=== PATIENT | male | born 1960 | race Caucasian/White ===

== ENCOUNTER 2018-10-28 09:27 | Observation (INO) | payer BC ==
--- OUTSIDE RECORDS SUMMARY | 2018-10-28 10:11 | XMS REPORT ---
:1960 Author Organization [facility] Address [address] [place] [address] Dr. Del Toro [address] [place] [id number] Care Team Providers Name Role Phone Unavailable Unavailable Unavailable Problems This patient has no known problems. Allergies, Adverse Reactions, Alerts This patient has no known allergies or adverse reactions. Medications This patient has no known medications.
--- OUTSIDE RECORDS SUMMARY | 2018-10-28 10:11 | XMS REPORT | Summary of Care ---
:1960 Author Name Anyn Ji M.A. Address [facility] Unavailable , Care Team Providers Name Role Phone HUMBERTO Nolasco, LOUIS Du Unavailable LOUIS PAUL MD Unavailable Unavailable HAZEL MCFARLANE, REGI PETERSON Unavailable Unavailable Unavailable Unavailable Unavailable Functional Status Name Dates Details Functional status health issues are not documented Status: Name Dates Details Cognitive status health issues are not documented Status: Problems Name Dates Details Excessive cerumen in right ear canal (380.4, H61.21) Status: Active Acute otitis externa (380.10, H60.509) Status: Active Chronic otitis externa (380.23, H60.60) Status: Active Medications Name Dates Details Zocor TABS Refills: 0 Active Prinivil TABS Refills: 0 Active Paxil TABS Refills: 0 Active PriLOSEC OTC TBEC Refills: 0 Active Ambien TABS Refills: 0 Active Latanoprost 0.005 % Ophthalmic Solution Refills: 0 Active traMADol HCl TABS Refills: 0 Active Fluocinolone Acetonide 0.01 % Otic Oil 3-4 drops to affected ear daily. Quantity: 1 Refills: 6 LOUIS PAUL M.D. Start : 28-Feb-2017 Active 20 ML Bottle Fluocinolone Acetonide 0.01 % Otic Oil 3 to 4 drops to both ears daily. Quantity: 1 Refills: 10 LOUIS PAUL M.D. Start : 13-Sep-2018 Active 20 ML Bottle Allergies and Adverse Reactions Name Dates Details No Known Drug Allergies (Allergy) Status: Active Past Medical History Name Dates Details History of diabetes mellitus (V12.29, Z86.39) Status: Resolved History of glaucoma (V12.49, Z86.69) Status: Resolved History of hypertension (V12.59, Z86.79) Status: Resolved Procedures Procedure Dates Details Procedures not documented Immunization Name Dates Details Immunizations not documented Family History Name Dates Details Family history of malignant neoplasm (V16.9, Z80.9) Comments: Family History Status: Active Family history of cardiac disorder (V17.49, Z82.49) Comments: Family History Status: Active Social History Name Dates Details - Status: Name Dates Details Never smoker Vital Signs Date Test Result Details [id number] BP Systolic 127 mm[Hg] Status: BP Diastolic 83 mm[Hg] Status: Height 68 in Status: Weight 299 lb Status: Body Mass Index Calculated 45.46 kg/m2 Status: Body Surface Area Calculated 2.42 m2 Status: Heart Rate 57 /min Status: [id number] BP Systolic 114 mm[Hg] Status: BP Diastolic 79 mm[Hg] Status: Height 68 in Status: Weight 298 lb Status: Body Mass Index Calculated 45.31 kg/m2 Status: Body Surface Area Calculated 2.42 m2 Status: Heart Rate 60 /min Status: [id number]:29 BP Systolic 115 mm[Hg] Status: BP Diastolic 79 mm[Hg] Status: Height 68 in Status: Weight 298.125 lb Status: Body Mass Index Calculated 45.33 kg/m2 Status: Body Surface Area Calculated 2.42 m2 Status: Heart Rate 65 /min Status: Results Date Description Value Details Results not documented Plan of Care Name Dates Details Planned Observations Planned Goals not documented Planned Encounters Appointment; LOUIS PAUL M.D. On: 14-Oct-2018 15:00 Interventions Provided Medication ChangesFluocinolone Acetonide 0.01 % Otic Oil - StartPlan1. Will need to stop the Ciprodex. Will begin Dermotic. FU in 1 month. Instructions Name Dates Details Instructions not documented Encounters Appointment; LOUIS PAUL M.D. On: 27-Feb-2017 14:00 Encounter Diagnosis: Problem not documented Appointment; LOUIS PAUL M.D. On: 30-Aug-2018 8:15 Encounter Diagnosis: Problem not documented Appointment; LOUIS PAUL M.D. On: 06-Sep-2018 9:15 Encounter Diagnosis: Problem not documented Appointment; LOUIS PAUL M.D. On: 13-Sep-2018 14:45 Encounter Diagnosis: Problem not documented
[2018-10-28 10:56] VITALS: BMI 43.1
[2018-10-28 11:06] LABS: Urine Appearance CLEAR; Urine Bilirubin NEGATIVE (NEG); Urine Blood 1+ (NEG); Urine Color YELLOW; Urine Glucose NEGATIVE (NEG); Urine Protein NEGATIVE (NEG); Urine pH 6.5 (5.0-7.0)
[2018-10-28 11:14] LABS: Urine Microscopic Reflex ORDER UMIC
[2018-10-28] MEDS: NACHLORIDE 0.45% 1,000 ML IV SCH ×2 (11:16→19:31)
[2018-10-28] MEDS: FLUTICASONE 50MCG NASAL SPRAY NAS SCH ×2 (11:16→20:41)
[2018-10-28 11:43] LABS: Urine Bacteria <20 /HPF (NONE SEEN); Urine Culture Reflex Order NOT NEEDED
[2018-10-28 11:45] LABS: Absolute Lymphocytes (CBC) 2.2 K/uL (0.7-4.9); Absolute Monocytes 1.2 K/uL (0.1-1.3); Absolute Neutrophil 6.7 K/uL (1.8-8.0); Basophils % 0.5 % (0-1.3); Eosinophils % 1.9 % (0-4.4); Hematocrit 40.1 % (39.6-49.0); Lymphocytes % 21.4 % (15.3-44.8); MPV 7.5 fL (7.6-11.3); Monocytes % 11.2 % (3.3-12.3); RBC Red Blood Cell Count 4.75 M/uL (4.33-5.43)
[2018-10-28 12:00] LABS: Protime INR 1.24
[2018-10-28 12:01] LABS: Albumin 3.3 g/dL (3.4-5.0); Bilirubin Total 0.4 mg/dL (0.2-1.0); Potassium 4.6 mmol/L (3.5-5.1); Protein, Total 7.3 g/dL (6.4-8.2)
[2018-10-28] MEDS ORDERED: GLUCAGON 1 MG/VIAL IM PRN (13:42)
[2018-10-28] MEDS ORDERED: D50W 25 GM/50 ML SYRINGE IV PRN (13:42)
[2018-10-28] MEDS ORDERED: CEFOXITIN SODIUM 1 GM/VIAL IVPB SCH (16:00)
[2018-10-28] MEDS: INSULIN -REGULAR HUMAN 50 UNIT/0.5 ML ML SQ SCH ×2 (16:30→20:41)
[2018-10-28] MEDS ORDERED: LISINOPRIL 20 MG TAB PO SCH (21:00)
[2018-10-28] MEDS ORDERED: HOME MED 1 EA UNK (Simvastatin [Zocor] 40 MG) PO SCH (21:00)
[2018-10-28] MEDS ORDERED: ZOLPIDEM TARTRATE 10 MG TABLET PO SCH (21:00)
[2018-10-28] MEDS ORDERED: ATORVASTATIN 20 MG TAB PO SCH (21:00)
[2018-10-28] MEDS ORDERED: HOME MED 1 EA UNK (Lisinopril [Lisinopril] 40 MG) PO SCH (21:00)
--- NOTE | 2018-10-28 21:18 | PREOPCON ---
Date of Consultation: 10/28/2018 Reason: Rectal bleeding. History Of Present Illness: The patient is a 58-year-old gentleman who comes in with acute onset of bright red blood per rectum this morning, was seen by Dr. Pichardo and there was some fresh blood in his rectal vault. He was admitted for further workup and I was consulted. He is awake, alert. Denies any nausea, vomiting, any abdominal pain. No weight loss. No diarrhea or constipation curren tly. He did have some constipation last week however. He had a colonoscopy last February. There wer e some benign polyps seen and internal hemorrhoids were noted. The patient has not had any further b owel movements since that first episode of bleeding. Review of Systems: Otherwise unremarkable. Past Medical History: Significant for hypertension, diabetes, and DVT, and significant medications a re Eliquis. Past Surgical History: Negative. Allergies: NO ALLERGIES. Social History: Denies smoking or drinking. Family History: Significant for unknown type of cancer in several family members. Physical Examination: Vital Signs: Stable. He is afebrile. General: He is awake, alert, and oriented x3. Head and Neck: Cranial nerves 2 through 12 are grossly within normal limits. No neck masses. No JV D. Throat clear. Neck is supple. Chest: Clear. Heart: S1 and S2. Abdomen: Soft, nondistended, nontender. Positive bowel sounds. Extremities: Neurovascularly intact. Neuro: Nonfocal. Rectal: There is trace amount of rectal bleeding, more toward the posterior aspect of the anal canal . There are no masses that are palpable. There is redundant tissue probably consistent with interna l hemorrhoids. Laboratory Data: Reviewed. His H and H are 13.4 and 40.1, platelets are 257. INR is 1.24. Beam Department Supervisor ry reviewed. BUN is 23, creatinine is 1.2. LFTs are within normal limits. Albumin is slightly low at 3.3. Assessment: Rectal bleeding, most likely secondary to hemorrhoids. Plan: As the patient is on Eliquis and taken today, we need to wait until tomorrow then we will proc eed with exam under anesthesia, rigid proctoscopy, and hemorrhoidectomy. The patient and family unde rstand the risks, benefits, and alternatives and agreed to procedure. Plan of care discussed with Dr Edi Pichardo. /MODL Voice ID: [id number] Report ID: [id number]
[2018-10-29] MEDS: NACHLORIDE 0.45% 1,000 ML IV SCH (02:45)
--- NOTE | 2018-10-29 06:04 | HP ---
Date of Admission: 10/28/2018 Chief Complaint: Rectal bleeding. History Of Present Illness: A 58-year-old male was brought to the office with fresh rectal bleeding. The patient is on Eliquis for DVT management. The patient had blood on the examining finger on rec geoff examination. Because of active bleeding, the patient is admitted for observation. The patient c laims to have had a colonoscopy and polypectomy less than 1 year ago. There is no history of vomitin g of blood or upper abdominal pain. Past Medical History: Past medical history is extensive, includes history of sleep apnea, glaucoma, DVT, gastroesophageal reflux, hyperlipidemia, type 2 diabetes, and hypertension. Past Surgical History: Positive for back surgery, eye surgery. Family History: Diabetes, DVT present. Personal History: No known allergies. Home Medicines: Refer to the chart. Allergies: NONE. Review of Systems: No chest pain or shortness of breath. Physical Examination: General: Revealed a 58-year-old obese male, afebrile. Vital Signs: Otherwise normal. Neck: Supple. JVD negative. Chest: Clear. Heart: Regular. Abdomen: Nontender. Bowel sounds present. Rectal: Fresh blood on the examining finger noted. Laboratory Data: White count normal, hemoglobin 13.5. Assessment: 1.Active rectal bleeding. 2.Type 2 diabetes. 3.Hypertension. 4.Hyperlipidemia. 5.Gastroesophageal reflux disease. 6.Deep vein thrombosis, on Eliquis. 7.Sleep apnea. 8.Glaucoma. Plan: Surgical consultation done. His Eliquis will be on hold. JESSA/HILARIO Voice ID: [id number]
[2018-10-29] MEDS ORDERED: PANTOPRAZOLE 40MG TABLET PO SCH (07:30)
[2018-10-29] MEDS: INSULIN -REGULAR HUMAN 50 UNIT/0.5 ML ML SQ SCH ×2 (07:30→11:30)
[2018-10-29] MEDS ORDERED: hydroCHLOROthiazide 25 MG TAB PO SCH (09:00)
[2018-10-29] MEDS ORDERED: HOME MED 1 EA UNK (Omeprazole [Omeprazole] 20 MG) PO SCH (09:00)
[2018-10-29] MEDS: FLUTICASONE 50MCG NASAL SPRAY NAS SCH (09:40)
[2018-10-29] MEDS ORDERED: NA CHLORIDE 0.9% 1,000 ML ONE (10:39)
[2018-10-29] MEDS ORDERED: CEFOXITIN/SWI 1gm 1 GM/10 ML SYR ONE (10:45)
[2018-10-29] MEDS: CEFOXITIN/SWI 1gm 1 GM/10 ML SYR IVP SCH ×3 (10:53→11:05)
[2018-10-29] MEDS ORDERED: FENTANYL CITR 100 MCG/2 ML ONE ×2 (11:08→11:39)
[2018-10-29] MEDS ORDERED: MIDAZOLAM HCL 2 MG/2 ML INJ ONE ×2 (11:08→11:39)
[2018-10-29] MEDS ORDERED: PROPOFOL 200 MG/20 ML VIAL IV ONE ×3 (11:08→11:38)
[2018-10-29] MEDS ORDERED: LIDOCAINE 1% MPF 5 ML VIAL ONE (11:08)
[2018-10-29] MEDS ORDERED: LIDOCAINE 1% MPF 30 ML VIAL ONE (11:13)
[2018-10-29] MEDS ORDERED: KETOROLAC 30 MG/ML INJ ONE (11:30)
--- NOTE | 2018-10-29 11:31 | P.OP ---
Preoperative diagnosis: Rectal Bleeding Postoperative diagnosis: same, mucosal tear Primary procedure: EUA, Rigid Procto, Control of Rectal Bleeding Anesthesia: TIVA Estimated blood loss: min Specimen: none Findings: as above Complications: None Transferred to: Recovery Room Condition: Good
[2018-10-29] MEDS ORDERED: ONDANSETRON 4 MG/2 ML VIAL ONE (11:40)
[2018-10-29] MEDS ORDERED: LIDOCAINE 2% MPF 5 ML VIAL ONE (11:40)
[2018-10-29 11:44] VITALS: O2SAT 100
[2018-10-29] MEDS ORDERED: CODEINE 30MG/APAP 300MG TAB PO PRN (11:50)
[2018-10-29 13:51] VITALS: BP 110/64; TEMP 97.1
[2018-10-29 14:06] LABS: RPR Titer ND
--- NOTE | 2018-10-29 14:07 | OP ---
Date of Procedure: 10/29/2018 Surgeon: Dylon Wolfe MD Preoperative Diagnosis: Rectal bleeding. Postoperative Diagnosis: Rectal bleeding with in the posterior midline of the anorectal c anal. Estimated Blood Loss: Minimal. Specimen: None. Findings: As above. Anesthesia: TIVA. Complications: None. Disposition: The patient tolerated the procedure in stable condition. Taken to Recovery in good gen eral condition. Procedure In Detail: The patient was brought to the OR and placed in supine position. Exam under an esthesia revealed no masses. Rigid proctoscopy performed to 20 cm. There was a normal appearing sto ol beyond 5 cm. No evidence of disease was seen. There was some blood visualized near the anal ari l. Then the patient was prepped and draped in usual sterile fashion. Then, a rigid proctoscopy perf ormed with a larger scope and then there was a posterior midline tear identified. There was minimal oozing. This was controlled with cautery. Then rectal pack consisting of Gel-Foam, Surgicel, dressi ng gauze placed in the anal canal and then Marcaine 0.5% was infiltrated locally for postop pain control and then patient awakened and taken to Recovery in good general condi tion. /MODL Voice ID: [id number] Report ID: [id number]
[2018-10-29 14:53] LABS: Folic Acid, (Folate) 15.7 ng/mL (3.1-17.5)
[2018-10-29 21:11] LABS: RPR (Rapid Plasma Reagin) NON-REACT (NON-REACT)
[2018-11-01 06:35] LABS: P-ANCA Anti-Myeloperoxidase Ab <1.0 AI (<1.0)
[2018-11-01 23:13] LABS: Albumin, (SPE) 3.5 g/dL (3.8-4.8); Alpha-1-Globulins 0.4 g/dL (0.2-0.3); Alpha-2-Globulins 0.9 g/dL (0.5-0.9); Gamma Globulins 1.1 g/dL (0.8-1.7); INTERPRETATION REPORT
== END 2018-10-29 14:47 | disposition home or self-care (01) ==
LOC: 2ND 10:08
PROVIDERS: ADMIT Internal Medicine; ATTEND Internal Medicine
PROC: 0W3P8ZZ Control Bleeding in Gastrointestinal Tract, Via Natural or Artificial Opening Endoscopic (ICD-10-PCS; principal; 2018-10-29 12:15)
DX: K62.5 Hemorrhage of anus and rectum (principal); K62.81 Anal sphincter tear (healed) (nontraumatic) (old); I10 Essential (primary) hypertension; E11.9 Type 2 diabetes mellitus without complications; Z86.718 Personal history of other venous thrombosis and embolism
CPT/HCPCS: 36415; 80053; 81003; 81015; 81240; 81241; 82306; 82607; 82746; 82962; 83090; 84165; 85025; 85300; 85302; 85305; 85306; 85610; 85730; 86021; 86147; 86592; G0378; J2250; J2405; J2704; J3010; J7030